=== PATIENT | female | born 1965 | race Caucasian/White ===

== ENCOUNTER 2022-02-23 13:57 | Emergency (ER) | payer BC ==
[2022-02-23] MEDS ORDERED: BENADRYL 50 MG/ML IM ONE (14:40)
[2022-02-23] MEDS ORDERED: Compazine 10 MG/2 ML IM PRN (14:40)
[2022-02-23] MEDS ORDERED: STADOL 2 MG IM ONE (14:42)
--- NOTE | 2022-02-23 14:47 | ERPHSYRPT ---
- History of Present Illness Source: patient Exam Limitations: no limitations Patient Subjective Stated Complaint: Pt states "I have had this migraine for 4 days and it will not go away." Triage Nursing Assessment: Pt presented alert and oriented X 3, skin pwd Pt ambulates with an upright steady gait, able to speak in clear full sentences pt in no apparent respiratory distress. pt holding head. Physician History: 56 yo wf w long h/o MGHA presents w L frontal BRANDT described as sharp and 8/10 for 3 days. Pt has had N/V and pain is worse w bright lights/loud noises. Pain typical of pt's BRANDT's. She denies fever/focal weakness. Saw PCP yesterday and given toradol wo improvement. Occurred: other (3 days) Severity: severe Head Injury Location: frontal (L) Allergies/Adverse Reactions: No Known Drug Allergies Allergy (Verified 02/23/22 14:30) Home Medications: Albuterol Sulfate [Albuterol Sulfate Hfa] 1 puff IH DAILY 02/23/22 [History] Gabapentin [Neurontin] 300 mg PO DAILY 02/23/22 [History] Tizanidine HCl 4 mg PO DAILY 02/23/22 [History] Hx Tetanus, Diphtheria Vaccination/Date Given: No Hx Influenza Vaccination/Date Given: No Hx Pneumococcal Vaccination/Date Given: No Immunizations Up to Date: Yes Travel Risk - International Travel Have you traveled outside of the country in past 3 weeks: No - Coronavirus Screening Are you exhibiting any of the following symptoms?: Yes Symptoms: Headaches/Body Aches/Fatigue Close contact with a COVID-19 positive Pt in past 14-21 Days: No - Vaccine Status Have you recieved a Covid-19 vaccination: No - Review of Systems Constitutional: No Symptoms Eyes: No Symptoms Ears, Nose, & Throat: No Symptoms Respiratory: No Symptoms Cardiac: No Symptoms Abdominal/Gastrointestinal: No Symptoms Genitourinary Symptoms: No Symptoms Musculoskeletal: No Symptoms Skin: No Symptoms Neurological: No Symptoms, Headache Psychological: No Symptoms Endocrine: No Symptoms Hematologic/Lymphatic: No Symptoms Immunological/Allergic: No Symptoms - Past Medical History Pertinent Past Medical History: Yes Neurological History: Migraines ENT History: No Pertinent History Cardiac History: High Cholesterol Respiratory History: No Pertinent History Endocrine Medical History: No Pertinent History Musculoskeletal History: No Pertinent History GI Medical History: No Pertinent History History: No Pertinent History Psycho-Social History: No Pertinent History Female Reproductive Disorders: No Pertinent History - Past Surgical History Past Surgical History: Yes Other Surgical History: uterine ablasion - Social History Smoking Status: Never smoker Exposure to second hand smoke: No Drug Use: none Patient Lives Alone: No Significant Family History: no pertinent family hx - Nursing Vital Signs Nursing Vital Signs: Initial Vital Signs Temperature 98.4 F 02/23/22 14:23 Pulse Rate 102 H 02/23/22 14:23 Respiratory Rate 24 02/23/22 14:23 Blood Pressure 160/74 02/23/22 14:23 O2 Sat by Pulse Oximetry 97 02/23/22 14:23 Pain Scale Pain Intensity 5 Tachy/Hypertensive - Offerman Coma Score Best Eye Response (Nichol): (4) open spontaneously Best Verbal Response (Nichol): (5) oriented Best Motor Response (Offerman): (3) flexion to pain Nichol Total: 12 - Physical Exam General Appearance: no apparent distress Head Injury: no evidence of injury Eye Exam: bilateral eye: normal inspection, PERRL, EOMI ENT Exam: airway nml, evidence of ENT injury Neck Exam: supple, trachea midline, normal inspection, No focal neuro deficit, No stiff neck, No meningismus, No Brudzinski, No Kernig's, No carotid bruit Cardiovascular/Respiratory Exam: normal breath sounds, heart sounds normal, tachycardia (Mild) Gastrointestinal/Abdominal Exam: soft, non tender Back Exam: normal inspection, normal range of motion, CVA tenderness, No vertebral tenderness Extremity Exam: non-tender, normal range of motion, normal inspection, normal capillary refill, no calf tenderness Mental Status Exam: alert, oriented x 3, cooperative torch shearer Exam: normal hearing, normal speech, PERRL, abnormal eye position Coordination/Gait Exam: normal gait, normal cerebellar function, negative Romberg's sign Motor/Sensory Exam: no motor deficit, no sensory deficit, no pronator drift, ne gative Babinski's sign DTR Exam: bicep (R): 2+, bicep (L): 2+ Skin Exam: normal color, warm, dry Lymphatic Exam: No adenopathy SpO2 Interpretation: normal SpO2: 97 O2 Delivery: Room Air - Course Nursing assessment & vital signs reviewed: Yes - CT Exams Head CT Interpretation: Tele-radiologist Report (CT head neg) Ordered Tests: Active Orders 24 hr Category Date Time Status HEAD WITHOUT CONTRAST [CT] Stat Exams 02/23/22 15:51 Ordered Medication Summary Discontinued Medications Generic Name Dose Route Start Last Admin Trade Name Lobito PRN Reason Stop Dose Admin Butorphanol Tartrate 2 mg 02/23/22 14:42 02/23/22 15:03 Butorphanol Tartrate 2 Mg/Ml Vial IM 02/23/22 14:43 2 mg STAT ONE Administration Butorphanol Tartrate Confirm 02/23/22 15:00 Butorphanol Tartrate 2 Mg/Ml Vial Administered 02/23/22 15:01 Dose 2 mg .ROUTE .STK-MED ONE Diphenhydramine HCl 25 mg 02/23/22 14:40 02/23/22 15:04 Diphenhydramine Hcl 50 Mg/Ml Vial IM 02/23/22 14:41 25 mg STAT ONE Administration Diphenhydramine HCl Confirm 02/23/22 15:00 Diphenhydramine Hcl 50 Mg/Ml Vial Administered 02/23/22 15:01 Dose 50 mg .ROUTE .STK-MED ONE Prochlorperazine Edisylate 10 mg 02/23/22 14:40 02/23/22 15:02 Prochlorperazine Edisylate 10 Mg/2 Ml Vial IM 03/25/22 14:39 10 mg Q6H PRN PRN Administration NAUSEA/VOMITING Prochlorperazine Edisylate Confirm 02/23/22 15:01 Prochlorperazine Edisylate 10 Mg/2 Ml Vial Administered 02/23/22 15:02 Dose 10 mg .ROUTE .STK-MED ONE - Progress Progress: improved Progress Note: 02/23/22 14:47 2mg IM Stadol/10mg IM Compazine/25mg IM Benadryl 02/23/22 17:13 Pain decreased before discharge to a 5/Pt ok to go home and sleep Counseled pt/family regarding: diagnosis, need for follow-up - Departure Departure Disposition: Home Clinical Impression: Migraine Condition: Stable Critical Care Time: No Referrals: ISABELLA DUNAWAY MD [Primary Care Provider] - Follow up/PCP as directed Instructions: Headache, Adult (DC) Additional Instructions: Follow up with your family MD or neurologist Return to ER for worsening pain/Focal weakness/Temperature greater than 100.5
[2022-02-23] MEDS ORDERED: STADOL 2 MG ONE (15:00)
[2022-02-23] MEDS ORDERED: BENADRYL 50 MG/ML ONE (15:00)
[2022-02-23] MEDS ORDERED: Compazine 10 MG/2 ML ONE (15:01)
[2022-02-23 16:47] VITALS: BP 100/58; PULSE 94
[2022-02-23 17:14] VITALS: O2SAT 97
--- NOTE | 2022-02-23 20:29 | XRAY ---
Indication: Migraine. Multiple contiguous axial images obtained through the head without contrast. Comparison: None. Normal appearing brain parenchyma, ventricles, and bony calvarium. Paranasal sinuses and mastoid air cells are clear. Impression: Normal CT head without contrast exam. Comment: Preliminary interpretation made by [facility]. No critical discrepancy.
== END 2022-02-23 17:26 | disposition home or self-care (01) ==
LOC: ED 13:57
DX: G43.909 Migraine, unspecified, not intractable, without status migrainosus (principal); R11.2 Nausea with vomiting, unspecified; E78.5 Hyperlipidemia, unspecified; Z79.899 Other long term (current) drug therapy; Z28.310 Unvaccinated for COVID-19
CPT/HCPCS: 70450; 96372; 99284; J0595; J1200